=== PATIENT | female | born 1985 | race Caucasian/White ===

== ENCOUNTER 2020-04-08 12:41 | Emergency (ER) | payer OTHER, SELFPAY ==
[2020-04-08 14:16] VITALS: BP 146/86; PULSE 89; RESP 18; TEMP 36.8; O2SAT 99; BMI 23.4
--- NOTE | 2020-04-08 14:22 | ED.DIZZY ---
HPI - Dizziness General Chief Complaint: Dizziness Stated Complaint: dizziness 2 weeks Time Seen by Provider: 04/08/20 14:22 Source: patient Mode of arrival: ambulatory Limitations: no limitations History of Present Illness HPI Narrative: Patient's history of benign positional vertigo came here for dizziness similar to that in the past for last 2 weeks started all of a sudden increases on head movement to the right slight nausea patient feels weak otherwise no stiff anemia also complaining of slight headache and poor sleep increased stress at home MD elicited complaint: dizziness Pertinent past history: BPPV Onset (ago): week(s) (2) Timing: sudden onset Severity: mild Description: sense of movement and room spinning Context: change in body position History of similar symptoms: Yes Exacerbating factors: movement/ambulation and change in body position Associated symptoms: denies other symptoms Related Data Previous Rx's Medication Instructions Recorded meclizine 25 mg PO TID PRN #20 tab 04/08/20 Allergies Allergy/AdvReac Type Severity Reaction Status Date / Time ibuprofen [From MOTRIN] Allergy Unknown UPSET Unverified 12/02/19 15:37 STOMACH/PAIN Review of Systems Review of Systems: Constitutional : No Weight loss, No Fever, No Chills ENT/Mouth : No sore throat, No Rhinorrhea Eyes: No Eye Pain, No Swelling Cardiovascular : No Chest Pain, no palpitations Respiratory : No Cough, No Sputum, no shortness of breath Gastrointestinal : no Nausea, No Vomiting, No Diarrhea, No abdominal Pain, no black stools Genitourinary : No Dysuria, No Urinary Frequency Musculoskeletal : No joint pain, No Myalgias, No Joint Swelling Skin : No Skin Lesions, No rash Neuro : No Weakness, No Numbness, ++ Dizziness, +Headache Psych : No Anxiety/Panic, No Depression Heme/Lymph: No Bruising, No Lymphadenopathy Endocrine : No Polyuria, No Polydipsia All other systems reviewed and are negative [facility] Social History Social History Advance Directives: No Advance Directives Information Provided: No Physical Exam Vital Signs: Vital Signs: Last Vital Signs Temp 98.2 F 04/08/20 14:16 Pulse 89 04/08/20 14:16 Resp 18 04/08/20 14:16 BP 146/86 H 04/08/20 14:16 Pulse Ox 99 04/08/20 14:16 Body Mass Index 23.4 Appearance: Alert. Oriented X3. No acute distress. Eyes: Pupils equal, round and reactive to light. ENT: Pharynx normal. Neck: Normal inspection. Neck supple. CVS: Normal heart rate and rhythm. Pulses normal. Respiratory: No respiratory distress. Breath sounds normal. Abdomen: Soft and nontender. Bowel sounds are present, no mass palpable, no CVA tenderness Skin: Skin warm and dry. Normal skin color. Normal skin turgor. Extremities: No lower extremity edema. Neuro: Oriented X 3. No motor deficit. No sensory deficit. No nystagmus EOMI no cerebellar signs, gait is stable Course Course Course Narrative: Patient with clinically benign positional vertigo with history of same in the past, feels better after meclizine ambulatory in the ER labs are stable with discharge patient home MDM - Dizziness Differential Diagnosis Differential diagnosis: Likely benign paroxysmal positional vertigo Medical Records Attestation: I reviewed the patient's medical records. Lab Data Attestation: I reviewed the patient's lab results. Result diagrams: 04/08/20 14:43 04/08/20 14:43 Labs: Lab Results 04/08/20 04/08/20 04/08/20 Range/Units 14:40 14:43 14:43 WBC 8.4 (4.8-10.8) X10*3/uL RBC 4.85 (4.20-5.50) X10*6/uL Hgb 13.8 (12.0-16.0) g/dl Hct 41.4 (37-47) % MCV 85.4 (80-98) fL MCH 28.5 (27.0-33.0) pg MCHC 33.3 (31.0-35.0) g/dl RDW 11.7 (11.0-16.0) % Plt Count 362 (160-400) X10*3/uL MPV 9.7 (9.4-12.3) fL Immature Gran % (Auto) 0.2 (0.0-0.4) % Neut % (Auto) 68.0 (45-73) % Lymph % (Auto) 24.0 (20-40) % [place] % (Auto) 7.5 (2-11) % Eos % (Auto) 0.2 (0-4) % Baso % (Auto) 0.1 (0-2) % Lymph # (Auto) 2.0 (1.2-4.9) X10*3/uL [place] # (Auto) 0.6 (0.1-1.2) X10*3/uL Eos # (Auto) 0.0 (0.0-0.4) X10*3/uL Baso # (Auto) 0.0 (0.0-0.2) X10*3/uL Abs Immat Gran (auto) 0.02 (0.00-0.03) X10*3/uL Absolute Neuts (auto) 5.7 (2.0-8.3) X10*3/uL Absolute Nucleated RBC 0.000 (0.0-0.012) X10*3/uL Nucleated RBC % (auto) 0.0 (0.0-0.2) /100WBC Sodium 139 (135-145) mmol/L Potassium 4.8 (3.3-5.1) mmol/l Chloride 104 (96-108) mmol/L Carbon Dioxide 26 (22-29) mmol/L Anion Gap 14 (12-20) BUN 9 (9-16) mg/dL Creatinine 0.77 (0.5-1.4) mg/dL Estim Creat Clear Calc 88.8 Estimated GFR > 60 Random Glucose 84 (60-115) mg/dL Calcium 9.7 (8.4-10.2) mg/dL Urine Color YELLOW Urine Appearance CLEAR Urine pH 5.5 (5.0-8.0) Ur Specific [place] 1.015 (1.005-1.025) Urine Protein NEG (NEG-TRACE) MG/DL Urine Glucose (UA) NEG (NEG) MG/DL Urine Ketones NEG (NEG) MG/DL Urine Blood 1+ H (NEG) Urine Nitrite NEG (NEG) Ur Leukocyte Esterase NEG (NEG) Urine RBC 0-2 (0) /HPF Urine WBC 0-2 (0-4) /HPF Ur Squamous Epith Cells TRACE /LPF Urine Bacteria NONE /LPF Discharge Plan Discharge Clinical Impression: Benign paroxysmal positional vertigo Patient Disposition: Home, Self-Care Instructions: Benign Paroxysmal Positional Vertigo (ED) Additional Instructions: Rest take meclizine as prescribed for severe dizziness Follow with PCP Prescriptions: New meclizine 25 mg tablet 25 mg PO TID PRN (Reason: dizziness) Qty: 20 RF: 0 Interventions: ED Discharge Assessment Last Done: 04/08/20 15:36 Discharge Date/Time: 04/08/20 15:36
[2020-04-08] MEDS: Meclizine HCl 25 MG TABLET 50 MG PO (14:42)
[2020-04-08 14:49] LABS: MANUAL DIFF FLAG NO
[2020-04-08 14:50] LABS: Basophils Percent Auto 0.1 % (0-2); Eosinophils Percent Auto 0.2 % (0-4); Hematocrit 41.4 % (37-47); Hemoglobin 13.8 g/dl (12.0-16.0); Imm Gran Abs Auto 0.02 X10*3/uL (0.00-0.03); Imm Gran Pct Auto 0.2 % (0.0-0.4); Mean Corpuscular HGB Conc 33.3 g/dl (31.0-35.0); Mean Corpuscular Hemoglobin 28.5 pg (27.0-33.0); Mean Corpuscular Volume 85.4 fL (80-98); Mean Platelet Volume 9.7 fL (9.4-12.3); Monocytes Absolute Auto 0.6 X10*3/uL (0.1-1.2); Monocytes Percent Auto 7.5 % (2-11); Neutrophils Absolute Auto 5.7 X10*3/uL (2.0-8.3); Platelet Count 362 X10*3/uL (160-400); Red Blood Count 4.85 X10*6/uL (4.20-5.50); Red Cell Distribution Width 11.7 % (11.0-16.0); White Blood Count 8.4 X10*3/uL (4.8-10.8)
[2020-04-08 14:51] LABS: Appearance Urine CLEAR; Color Urine YELLOW; Glucose Urine UA NEG (NEG); Leukocyte Esterase Urine NEG (NEG); Nitrite Urine NEG (NEG); PH 5.5 (5.0-8.0); Specific Gravity - Urine 1.015 (1.005-1.025); Urine Blood 1+ (NEG); Urine Ketones NEG (NEG); Urine Protein NEG (NEG-TRACE)
[2020-04-08 15:00] LABS: RBC Urine 0-2 /HPF (0); Squamous Epithelial Cell Urine TRACE /LPF; WBC Urine 0-2 /HPF (0-4)
[2020-04-08 15:13] LABS: Anion Gap 14 (12-20); Blood Urea Nitrogen 9 mg/dL (9-16); Calcium 9.7 mg/dL (8.4-10.2); Carbon Dioxide 26 mmol/L (22-29); Chloride 104 mmol/L (96-108); Creatinine Clr Calc Pharmacy 88.8; Estimated Glomerular Filt Rate > 60; Glucose Random 84 mg/dL (60-115); Potassium 4.8 mmol/l (3.3-5.1); Sodium 139 mmol/L (135-145)
== END 2020-04-08 15:36 | disposition home or self-care (01) ==
PROVIDERS: Emergency Provider Internal Medicine; PCP Physician Assistant Medical
DX: H81.13 Benign paroxysmal vertigo, bilateral (principal); Z79.899 Other long term (current) drug therapy
CPT/HCPCS: 36415; 80048; 81001; 85025; 99283

== ENCOUNTER 2021-07-07 15:31 | Emergency (ER) | payer OTHER, SELFPAY ==
[2021-07-07 15:44] VITALS: BP 128/77; BP 180/60; PULSE 122; PULSE 128; RESP 18; TEMP 38; O2SAT 96; O2SAT 98; BMI 29.8
--- NOTE | 2021-07-07 15:59 | ED.GENADULT ---
HPI - General Adult General Chief complaint: Upper Respiratory Symptoms Stated complaint: FEVER,NAUSEA,? COVID, NOT VACCINATED Time Seen by Provider: 07/07/21 15:58 Source: patient Mode of arrival: ambulatory Limitations: no limitations History of Present Illness HPI narrative: Patient is a 35 year old female presenting to the emergency department today feeling generally unwell. Patient states that for the last 4 days she has felt unwell and all of her family is COVID-19+. Patient denies any dizziness, lightheadedness, abdominal pain, nausea, vomiting, chills, blurry vision, double vision, loss of vision, chest pain, difficulty breathing, shortness of breath, back pain, night sweats, pain with urination, increased urinary frequency, increased urinary urgency, blood in her urine or stool, syncope or a near syncopal episode, recent trauma or falls, bowel incontinence, bladder incontinence, bowel retention, bladder retention, or any other complaints at this time. Onset (ago): day(s) (4) Relieving factors: none Exacerbating factors: none Associated symptoms: cough Treatments prior to arrival: none Related Data Previous Rx's Medication Instructions Recorded meclizine 25 mg tablet 25 mg PO TID PRN #20 tab 04/08/20 acetaminophen 325 mg capsule 325 mg PO QID PRN #30 cap 07/07/21 (Tylenol) ondansetron 4 mg disintegrating 4 mg PO Q8H 3 Days #9 tab 07/07/21 tablet Allergies Allergy/AdvReac Type Severity Reaction Status Date / Time ibuprofen [From MOTRIN] Allergy Unknown UPSET Unverified 12/02/19 15:37 STOMACH/PAIN Review of Systems Constitutional: Constitutional: Reports no additional constitutional complaints, Reports body ache(s), Denies chills, Reports fever(s) and Denies night sweats Eyes: Eyes: Reports no additional eye complaints, Denies blurry vision, Denies change in vision, Denies diplopia, Denies eye discharge, Denies loss of vision and Denies eye pain ENT: Denies dizziness Cardiovascular: Cardiovascular: Reports no additional cardiovascular complaints, Denies chest pain, Denies lightheadedness, Denies Loss of Consciousness and Denies dyspnea Respiratory: Respiratory: Reports no additional respiratory complaints, Reports cough and Denies dyspnea Gastrointestinal: Gastrointestinal: Reports no additional gastrointestinal complaints, Denies abdominal pain, Denies melena, Denies hematochezia, Denies change in bowel habits and Denies change in stool character Genitourinary: Genitourinary: Denies hematuria, Denies urinary frequency, Denies dysuria, Denies urinary incontinence, Denies urinary hesitancy and Denies urinary urgency Musculoskeletal: Musculoskeletal: Reports no additional musculoskeletal complaints, Denies numbness and Denies tingling Neurologic: Denies dizziness, Denies loss of vision, Denies numbness and Denies tingling Psychiatric: Psychiatric: Reports no additional psychiatric complaints Endocrine: Endocrine: Reports no additional endocrine complaints Hematologic/Lymphatic: Hematologic/Lymphatic: Reports no additional hematologic/lymphatic complaints Allergic/Immunologic: Allergic/Immunologic: Reports no additional allergic/immunologic complaints [facility] Past Medical History Attestation statement: The following information was validated with the patient. Source: old records reviewed Social History Social History Advance Directives: No Advance Directives Information Provided: No Physical Exam ED Vital Signs: Vital Signs - 24 hr 07/07/21 15:44 07/07/21 16:02 07/07/21 18:49 Temperature 100.4 F 98.5 F Pulse Rate 122 H 98 Respiratory Rate 18 16 Blood Pressure 128/77 100/54 L Pulse Oximetry 96 100 99 BMI result Body Mass Index 29.8 Const General: cooperative, no acute distress, alert and awake Nutritional Appearance: well nourished Orientation/consciousness: patient oriented x3 Limitations: no limitations HENMT Head: Yes normal to inspection and Yes atraumatic Ears: hearing grossly normal bilaterally and external ears normal General nose exam: Normal external nose present, no nasal discharge noted and no epistaxis Face and sinus: Yes normal facial exam, No abrasion and No laceration Mouth: Normal oral and palatal mucosa present, no drooling and no muffled voice Eyes General: appearance normal, both eyes and all related structures Periorbital: periorbital findings normal Eyelids: Yes eyelids normal Conjunctivae: conjunctivae normal Pupils: Equal, round and reactive pupils present EOM: EOMs intact bilaterally Neck Neck: Yes normal visual inspection, Yes full ROM and Yes no lymphadenopathy Chest Chest palpation & inspection: normal inspection of the chest Resp Effort & Inspection: normal respiratory effort and able to speak in complete sentences Auscultation: clear to auscultation bilaterally GI Inspection: Yes normal to inspection Neuro General: patient oriented x3 and moves all extremities Cranial nerves: Yes Equal, round and reactive pupils present Cognition (Neuro): normal cognition Motor exam (neuro): 5/5 motor strength present throughout Sensory Exam: Normal double simultaneous stimulation for sensation Coordination: [id number] test normal Extrem General: Yes normal to inspection, Yes full ROM and Yes capillary refill normal Psych Appearance: grossly normal Mental Status: mental status grossly normal Affect: normal affect Attitude: cooperative Thought process: Normal thought process present Thought content: Normal thought content present Insight: Good insight present (Psych) Medical Decision Making MDM Narrative Medical decision making narrative: Patient is a 35 year old female presenting to the emergency department today feeling generally unwell. Patient's physical exam was unremarkable. Patient's rapid COVID-19 test was positive. I explained my physical exam findings as well as all test results to the patient. I answered all questions asked by the patient. I stressed the importance of the patient taking her medication as prescribed. I stressed the importance of the patient following up with her primary care provider. I stressed the importance of the patient returning to the emergency department immediately if her symptoms were to worsen or if she were to develop any dizziness, shortness of breath, difficulty breathing, chest pain, blurry vision, loss of vision, nausea, vomiting, abdominal pain, fever, chills, back pain, or any other complaints. Patient verbalized agreement and understanding with this treatment plan and discharge. Differential Diagnosis Differential Diagnosis: influenza, COVID-19 Medical Records Medical records reviewed: Yes I reviewed the patient's medical records. Lab Data Lab results reviewed: Yes I reviewed the patient's lab results. Labs: Lab Results 07/07/21 07/07/21 Range/Units 15:49 16:25 COVID-19 (REUBEN) Positive A (Negative) COVID-19 Clin Com See Note Influenza Type A (ANA MARIA) Negative (Negative) Influenza Type B (ANA MARIA) Negative (Negative) Influenza A & B Note See Note Discharge Plan Discharge Clinical Impression: COVID Patient Disposition: Home, Self-Care Instructions: COVID-19 (Coronavirus Disease 2019) (ED) Additional Instructions: Follow up with your primary care provider. Return to the emergency department immediately if your symptoms worsen or if you develop any dizziness, shortness of breath, difficulty breathing, chest pain, blurry vision, loss of vision, nausea, vomiting, abdominal pain, fever, chills, back pain, or any other complaints. Prescriptions: New ondansetron 4 mg tablet,disintegrating 4 mg PO Q8H 3 Days Qty: 9 0RF acetaminophen [Tylenol] 325 mg capsule 325 mg PO QID PRN (Reason: fever or pain) Qty: 30 0RF No Action meclizine 25 mg tablet 25 mg PO TID PRN (Reason: dizziness) Qty: 20 0RF Referrals: [facility] [place] Family Medicine [Provider Group] [facility] Primary Care, Yasmine [Provider Group] [facility] [place] Primary Care,Apolinar [Provider Group] Physician,Unknown J [Primary Care Provider] - (Follow up with your PCP. ) Stand Alone Forms: Work/School Release Interventions: ED Discharge Assessment Last Done: 07/07/21 19:55 Discharge Date/Time: 07/07/21 19:30 Print Language: [place]
[2021-07-07 16:02] VITALS: O2SAT 100
[2021-07-07 16:06] LABS: COVID-19 Test Positive (Negative)
[2021-07-07] MEDS: Acetaminophen 325 MG TABLET 650 MG PO (16:22)
[2021-07-07] MEDS: Ondansetron ODT 4 MG TAB.RAPDIS TRANSLINGU (16:22)
[2021-07-07 16:49] LABS: Influenza A Negative (Negative); Influenza B2 Negative (Negative)
[2021-07-07] MEDS: 0.9 % Sodium Chloride 1,000 ML 999 ML IVCONT (18:14)
[2021-07-07 18:49] VITALS: BP 100/54; PULSE 98; RESP 16; TEMP 36.9; O2SAT 99
== END 2021-07-07 19:30 | disposition home or self-care (01) ==
PROVIDERS: Physician Assistant Medical; Emergency Provider Emergency Medicine Emergency Medical Services
DX: U07.1 COVID-19 (principal); R50.9 Fever, unspecified; R11.0 Nausea; R05.9 Cough, unspecified; Z79.899 Other long term (current) drug therapy
CPT/HCPCS: 87502; 87635; 96360; 99284; 99285

== ENCOUNTER 2023-06-26 20:21 | Emergency (ER) | payer OTHER, SELFPAY ==
--- NOTE | ~2023-06-26 | XR_ITS ---
EXAMINATION: XR CHEST CLINICAL INFORMATION: Cough. COMPARISON: None available. TECHNIQUE: 2 views of the chest were obtained. FINDINGS: Normal appearance of the cardiomediastinal silhouette. No focal airspace opacities, pleural effusion or pneumothorax. No acute osseous findings. Visualized upper abdomen is within normal limits. XR/XR chest 2V IMPRESSION: No acute cardiopulmonary findings.
[2023-06-26 20:30] VITALS: BP 136/88; PULSE 88; RESP 18; TEMP 36.4; O2SAT 99; BMI 33.1
--- NOTE | 2023-06-26 20:31 | ED.URI ---
HPI - URI/Sore Throat General Chief Complaint: Upper Respiratory Symptoms Stated Complaint: cough x 1 week Time Seen by Provider: 06/26/23 21:18 Source: patient Mode of arrival: ambulatory Limitations: no limitations History of Present Illness HPI Narrative: Patient has been coughing for last 1 week with wheezing urine is inspiration denies any history of asthma also obtain of sore throat no fever no chills Related Data Previous Rx's ?Medication ?Instructions ?Recorded meclizine 25 mg tablet 25 mg PO TID PRN dizziness #20 tabs 04/08/20 acetaminophen 325 mg capsule 325 mg PO QID PRN fever or pain 07/07/21 (Tylenol) #30 caps ondansetron 4 mg disintegrating 4 mg PO Q8H 3 days #9 tabs 07/07/21 tablet benzonatate 200 mg capsule 200 mg PO TID PRN cough #30 caps 06/26/23 cefuroxime axetil 500 mg tablet 500 mg PO BID 7 days #14 tabs 06/26/23 prednisone 20 mg tablet 40 mg (2 x 20 mg) PO DAILY #10 tabs 06/26/23 Allergies Allergy/AdvReac Type Severity Reaction Status Date / Time griseofulvin AdvReac Headache Verified 06/26/23 21:56 Review of Systems Review of Systems: Yes all other systems are reviewed and are negative PMFSH Social History Social History Advance Directives: No Advance Directives Information Provided: No Physical Exam Vital Signs: Vital Signs: Last Vital Signs Temp 98.1 F 06/26/23 21:58 Pulse 78 06/26/23 21:58 Resp 18 06/26/23 21:58 BP 128/78 06/26/23 21:58 Pulse Ox 99 06/26/23 21:58 O2 Del Method Room Air 06/26/23 21:58 BMI result Body Mass Index 33.1 Appearance: Alert. Oriented X3. No acute distress. ENT: Pharynx normal. Oral Mucosa moist Neck: Normal inspection. Neck supple. CVS: Normal heart rate and rhythm. Pulses normal. Respiratory: No respiratory distress. Equal air entry bilateral, prolonged expiration with frequent cough Abdomen: Soft and nontender. Bowel sounds are present, Skin: Skin warm and dry. Normal skin color. Normal skin turgor. Extremities: No lower extremity edema. No calf tenderness Neuro: Oriented X 3. Course Course Course Narrative: This is a Rapid Medical Examination (RME) in triage, full HPI, ROS, assessment and plan per primary provider in the Main ED. 37 yo female presenting to the ER for evaluation of 1 week of cough, sore throat, chest tightness, wheezing w/ deep breaths. No hx asthma. Plan: CXR, viral and strep swabs Medications Administered Discontinued Medications Generic Name Dose Route Start Last Admin Trade Name Freq PRN Reason Stop Dose Admin Cefuroxime Axetil 500 mg 06/26/23 21:39 06/26/23 21:55 Cefuroxime Axetil 500 Mg Tablet PO 06/26/23 21:40 500 mg ONCE ONE Administration Guaifenesin/Codeine Phosphate 10 ml 06/26/23 21:39 06/26/23 21:56 Guaifen/Codeine Sf 200/20/10ml 10 Ml Liquid PO 06/26/23 21:40 10 ml ONCE ONE Administration Prednisone 40 mg 06/26/23 21:39 06/26/23 21:54 Prednisone 20 Mg Tablet PO 06/26/23 21:40 40 mg ONCE ONE Administration Medical Decision Making Medical Decision Making MDM Narrative: Patient with acute bronchitis chest x-ray negative for infiltrate COVID flu negative discharge patient Ceftin and cough drops along with prednisone Differential Diagnosis Differential Diagnoses: The differential diagnosis associated with the presentation includes Bronchitis/asthma/pneumonia/viral syndrome Lab Data [facility] Lab Attestation statement: I reviewed the patient's lab results. Labs: Lab Results 06/26/23 Range/Units 20:48 COVID-19 (REUBEN) Negative (Negative) COVID-19 Clin Com See Note Influenza Type A (ANA MARIA) Negative (Negative) Influenza Type B (ANA MARIA) Negative (Negative) Influenza A & B Note See Note S. pyogenes GrpA ANA MARIA Negative (Negative) Independent Interpretation I performed an independent interpretation of an: Plain X-Ray Radiology Impression Discussion of test interpretation with radiology: I have reviewed the radiologist's reading. Discharge Plan Discharge Clinical Impression: Bronchitis Patient Disposition: Home, Self-Care Instructions: Acute Bronchitis (ED) Additional Instructions: Antibiotic prednisone and cough drops as prescribed Continue to use your inhaler 2 puffs every 4-6 hours as needed for wheezing Prescriptions: New benzonatate 200 mg capsule 200 mg PO TID PRN (Reason: cough) Qty: 30 0RF prednisone 20 mg tablet 40 mg PO DAILY Qty: 10 0RF cefuroxime axetil 500 mg tablet 500 mg PO BID 7 Days Qty: 14 0RF No Action meclizine 25 mg tablet 25 mg PO TID PRN (Reason: dizziness) Qty: 20 0RF ondansetron 4 mg tablet,disintegrating 4 mg PO Q8H 3 Days Qty: 9 0RF acetaminophen [Tylenol] 325 mg capsule 325 mg PO QID PRN (Reason: fever or pain) Qty: 30 0RF Interventions: ED Discharge Assessment Last Done: 06/26/23 21:58 Discharge Date/Time: 06/26/23 21:59 Print Language: Macedonian
--- NOTE | 2023-06-26 20:51 | MHC.EDTECH ---
Patient brought into triage area,covid,flu,and strep swabs obtained and sent to lab.
[2023-06-26 21:02] LABS: IDNOW Serial# 08D9AD1C; Strep A Nucleic Acid Negative (Negative)
[2023-06-26 21:06] LABS: COVID-19 Test Negative (Negative); IDNOW Serial# 58CA691E
[2023-06-26 21:10] LABS: IDNOW Serial# 152EDE1D; Influenza A Negative (Negative); Influenza B2 Negative (Negative)
[2023-06-26 21:13] VITALS: BP 128/70; PULSE 78; RESP 18; TEMP 36.7; O2SAT 99
[2023-06-26] MEDS: predniSONE 20 MG TABLET 40 MG PO (21:54)
[2023-06-26] MEDS: cefuroxime axetiL 500 MG TABLET PO (21:55)
[2023-06-26] MEDS: guaiFEN/Codeine SF 200/20/10ML 10 ML LIQUID PO (21:56)
[2023-06-26 21:58] VITALS: BP 128/78; PULSE 78; RESP 18; TEMP 36.7; O2SAT 99
== END 2023-06-26 21:59 | disposition home or self-care (01) ==
PROVIDERS: Physician Assistant; Emergency Provider Internal Medicine; PCP Physician Assistant
DX: J40 Bronchitis, not specified as acute or chronic (principal); R05.9 Cough, unspecified; Z11.52 Encounter for screening for COVID-19
CPT/HCPCS: 71046; 87502; 87635; 87651; 99282; 99283

== ENCOUNTER 2023-09-23 15:04 | Emergency (ER) | payer OTHER, SELFPAY ==
--- NOTE | 2023-09-23 15:07 | ECG_ITS ---
Test Reason : CHEST PAIN Blood Pressure : / mmHG Vent. Rate : 074 BPM Atrial Rate : 074 BPM P-R Int : 122 ms QRS Dur : 088 ms QT Int : 388 ms P-R-T Axes : 049 024 037 degrees QTc Int : 430 ms Normal sinus rhythm Normal ECG When compared with ECG of 13-JAN-2019 08:19, No significant change was found Referred By: Josh Leslie Electronically Signed By:Tristin Kiran
[2023-09-23 16:19] VITALS: BP 132/74; PULSE 88; RESP 18; TEMP 36.7; O2SAT 99; BMI 35.1
--- NOTE | 2023-09-23 17:52 | PC.NURSE ---
pt declined covid/flu/rsv. tested neg at PCP earlier today.
[2023-09-23 17:53] LABS: MANUAL DIFF FLAG NO
[2023-09-23 17:57] LABS: Basophils Percent Auto 0.2 % (0-2); Eosinophils Absolute Auto 0.1 X10*3/uL (0.0-0.4); Eosinophils Percent Auto 0.9 % (0-4); Hematocrit 39.7 % (37.0-47.0); Hemoglobin 13.6 g/dl (12.0-16.0); Imm Gran Abs Auto 0.04 X10*3/uL (0.00-0.03); Imm Gran Pct Auto 0.5 % (0.0-0.4); Lymphocytes Absolute Auto 2.3 X10*3/uL (1.2-4.9); Lymphocytes Percent Auto 26.2 % (20-40); Mean Corpuscular HGB Conc 34.3 g/dl (31.0-35.0); Mean Corpuscular Volume 87.6 fL (80.0-98.0); Mean Platelet Volume 9.4 fL (9.4-12.3); Monocytes Absolute Auto 0.8 X10*3/uL (0.1-1.2); Monocytes Percent Auto 8.9 % (2-11); Neutrophils Absolute Auto 5.6 x10*3/uL (2.0-8.3); Neutrophils Percent Auto 63.3 % (45-73); Platelet Count 349 X10*3/uL (160-400); Red Blood Count 4.53 X10*6/uL (4.20-5.50); Red Cell Distribution Width 12.1 % (11.0-16.0); White Blood Count 8.8 X10*3/uL (4.8-10.8)
[2023-09-23 18:02] LABS: INTERNATIONAL NORM RATIO 0.9 (0.9-1.1)
[2023-09-23 18:08] LABS: Alanine Aminotransferase 36 U/L (0-31); Albumin Level 4.5 g/dL (3.5-5.0); Alkaline Phosphatase 67 U/L (39-117); Anion Gap 14 (12-20); Aspartate Amino Transferase 22 U/L (5-31); Bilirubin Total 0.3 mg/dL (0.0-1.0); Blood Urea Nitrogen 16 mg/dL (9-16); Calcium 9.5 mg/dL (8.4-10.2); Carbon Dioxide 24 mmol/L (22-29); Chloride 107 mmol/L (96-108); Creatinine Clr Calc Pharmacy 105.4; Estimated Glomerular Filt Rate > 60; Glucose Random 107 mg/dL (60-115); Potassium 4.2 mmol/L (3.3-5.1); Sodium 141 mmol/L (135-145); Total Protein 7.4 g/dL (6.5-8.0)
[2023-09-23 18:16] LABS: Troponin-I High Sensitivity < 2.7 ng/L (<3.5-17.0)
--- NOTE | 2023-09-23 19:16 | ED_ITS ---
HPI - General Adult General Chief complaint: Weakness Stated complaint: chest pain/weakness/palpitations for the past week Time Seen by Provider: 09/23/23 18:47 Source: patient Mode of arrival: ambulatory Limitations: no limitations History of Present Illness HPI narrative: Patient is a 38-year-old female who presents to the emergency department for multiple complaints. She expresses experiencing generalized weakness, fatigue, myalgias, diffuse body paresthesias with pins and needles sensation. Symptoms have been ongoing for many months but states that they have been worse over the past week. She admits to an episode of chest pain last night felt diffusely across the anterior chest lasting a few minutes before self-resolving. She recently flew from [place] 10 days ago an approximate 2 hour flight. She was evaluated at an urgent care prior to arrival, she was tested for COVID-19 and influenza which were negative and states that she had a normal EKG but was advised to come to the emergency department for further testing. She states that she is seen her primary care doctor multiple times in the past for similar symptoms and has been told that it is secondary to her anxiety and depression. She does not feel that this is the case, citing ?I am the happiest I have been in my life? I do not feel anxious or depressed and I am still having these symptoms. Related Data Previous Rx's ?Medication ?Instructions ?Recorded meclizine 25 mg tablet 25 mg PO TID PRN dizziness #20 tabs 04/08/20 acetaminophen 325 mg capsule 325 mg PO QID PRN fever or pain 07/07/21 (Tylenol) #30 caps ondansetron 4 mg disintegrating 4 mg PO Q8H 3 days #9 tabs 07/07/21 tablet benzonatate 200 mg capsule 200 mg PO TID PRN cough #30 caps 06/26/23 cefuroxime axetil 500 mg tablet 500 mg PO BID 7 days #14 tabs 06/26/23 prednisone 20 mg tablet 40 mg (2 x 20 mg) PO DAILY #10 tabs 06/26/23 Allergies Allergy/AdvReac Type Severity Reaction Status Date / Time griseofulvin AdvReac Headache Verified 09/23/23 16:24 Review of Systems 2 Review of Systems: Yes all other systems are reviewed and are negative PMFSH Past Medical History Attestation statement: The following information was validated with the patient. Source: old records reviewed Social History Social History Unable to assess alcohol history related to: Unable to respond Smoked in Last 30 Days: No Use of substances other than those prescribed or required for medical reasons: No Advance Directives: No Advance Directives Information Provided: No Do you have a plan to hurt others: No Plan Physical Exam ED Vital Signs: Vital Signs - 24 hr 09/23/23 16:19 09/23/23 19:35 Temperature 98.0 F 97.9 F Pulse Rate 88 71 Respiratory Rate 18 20 Blood Pressure 132/74 131/69 Pulse Oximetry 99 100 Oxygen Delivery Method Room Air Room Air BMI result Body Mass Index 35.1 Appearance: Alert.?Oriented to person, place and time. No acute distress.?Normal affect. Eyes: Pupils equal, round and reactive to light.? ENT: Pharynx normal.?? Neck: Normal inspection.? Neck supple.?? CVS: Heart sounds normal. Normal heart rate and rhythm.? Pulses normal.?? Respiratory: No respiratory distress.? Lung sounds clear to auscultation bilaterally?? Abdomen: Soft and non-tender. Normoactive bowel sounds. No pulsatile mass.?? Skin: Skin warm and dry.? Normal skin color.? ? Extremities: No lower extremity edema.? No calf ttp? Neuro: Moves all extremities spontaneously. Sensation intact bilaterally. CN II- XII intact. No focal neuro deficits. Ambulates with normal steady gait. Medical Decision Making Medical Decision Making MDM Narrative: Patient is a 38-year-old female who presents emergency department for evaluation of multiple complaints as per HPI. Overall she appears well, nontoxic, afebrile. Her vital signs are stable. She has ambulatory with a steady gait. She has no focal neurological deficits on examination. On review of serum labs CBC is without leukocytosis anemia or thrombocytopenia. No electrolyte derangement. No LEONARDO. LFTs within normal range. High sensitive troponin below detectable limits, EKG revealing a normal sinus rhythm with ventricular rate of 74, QTC 430, no ST elevation, no ST depression, no acute ischemic findings not consistent with ACS. Perc negative unlikely pulmonary embolism. TSH within normal range. Reviewed all findings with patient, her physical examination is benign. We discussed outpatient follow-up with her primary care doctor for ongoing symptoms, discussed worrisome signs and symptoms that would warrant re- evaluation in the emergency department. All questions answered. Stable for discharge Differential Diagnosis Differential Diagnoses: The differential diagnosis associated with the presentation includes (See narrative above) Admission/Observation Consideration of admission/observation: Escalation of care including admission/observation considered Lab Data MDM Lab Attestation statement: I reviewed the patient's lab results. (See narrative above) 09/23/23 17:45 09/23/23 17:45 Labs: Lab Results 09/23/23 Range/Units 17:45 WBC 8.8 (4.8-10.8) X10*3/uL RBC 4.53 (4.20-5.50) X10*6/uL Hgb 13.6 (12.0-16.0) g/dl Hct 39.7 (37.0-47.0) % MCV 87.6 (80.0-98.0) fL MCH 30.0 (27.0-33.0) pg MCHC 34.3 (31.0-35.0) g/dl RDW 12.1 (11.0-16.0) % Plt Count 349 (160-400) X10*3/uL MPV 9.4 (9.4-12.3) fL Immature Gran % (Auto) 0.5 H (0.0-0.4) % Neut % (Auto) 63.3 (45-73) % Lymph % (Auto) 26.2 (20-40) % [place] % (Auto) 8.9 (2-11) % Eos % (Auto) 0.9 (0-4) % Baso % (Auto) 0.2 (0-2) % Lymph # (Auto) 2.3 (1.2-4.9) X10*3/uL [place] # (Auto) 0.8 (0.1-1.2) X10*3/uL Eos # (Auto) 0.1 (0.0-0.4) X10*3/uL Baso # (Auto) 0.0 (0.0-0.2) X10*3/uL Abs Immat Gran (auto) 0.04 H (0.00-0.03) X10*3/uL Absolute Neuts (auto) 5.6 (2.0-8.3) x10*3/uL Absolute Nucleated RBC 0.000 (0.0-0.012) X10*3/uL Nucleated RBC % (auto) 0.0 (0.0-0.2) /100WBC PT 11.0 L (11.1-13.3) SEC INR 0.9 (0.9-1.1) Sodium 141 (135-145) mmol/L Potassium 4.2 (3.3-5.1) mmol/L Chloride 107 (96-108) mmol/L Carbon Dioxide 24 (22-29) mmol/L Anion Gap 14 (12-20) BUN 16 (9-16) mg/dL Creatinine 0.77 (0.5-1.4) mg/dL Estim Creat Clear Calc 105.4 Estimated GFR > 60 Random Glucose 107 (60-115) mg/dL Calcium 9.5 (8.4-10.2) mg/dL Total Bilirubin 0.3 (0.0-1.0) mg/dL AST 22 (5-31) U/L ALT 36 H (0-31) U/L Alkaline Phosphatase 67 (39-117) U/L Troponin I High Sens < 2.7 (<3.5-17.0) ng/L Total Protein 7.4 (6.5-8.0) g/dL Albumin 4.5 (3.5-5.0) g/dL TSH 1.74 (0.32-4.0) uIU/mL Tests considered The following testing was considered but not selected: PERC negative, unlikely pulmonary embolism, CT angio of the chest deferred. Discharge Plan Discharge Clinical Impression: Arthralgia, Fatigue Patient Disposition: Home, Self-Care Instructions: Arthralgia (ED) Additional Instructions: Please follow-up closely with your primary care doctor regarding your ongoing symptoms. Return back to emergency department any new or worsening symptoms or concerns Prescriptions: No Action meclizine 25 mg tablet 25 mg PO TID PRN (Reason: dizziness) Qty: 20 0RF ondansetron 4 mg tablet,disintegrating 4 mg PO Q8H 3 Days Qty: 9 0RF acetaminophen [Tylenol] 325 mg capsule 325 mg PO QID PRN (Reason: fever or pain) Qty: 30 0RF benzonatate 200 mg capsule 200 mg PO TID PRN (Reason: cough) Qty: 30 0RF prednisone 20 mg tablet 40 mg PO DAILY Qty: 10 0RF cefuroxime axetil 500 mg tablet 500 mg PO BID 7 Days Qty: 14 0RF Referrals: Maria Del Rosario Serrato PA [Primary Care Provider] - Print Language: Ukrainian
[2023-09-23 19:35] VITALS: BP 131/69; PULSE 71; RESP 20; TEMP 36.6; O2SAT 100
[2023-09-23 19:40] LABS: TSH reflex Free T4 1.74 uIU/mL (0.32-4.0)
[2023-09-23 20:45] LABS: Influenza A PCR NEGATIVE (Negative); Influenza B PCR NEGATIVE (Negative); Resp Syncy Virus RNA Qual PCR NEGATIVE (Negative); SARS COV2 PCR INHOUSE NEGATIVE (Negative)
[2023-09-23 21:21] VITALS: BP 131/69; PULSE 71; RESP 20; TEMP 36.6; O2SAT 100
== END 2023-09-23 21:57 | disposition home or self-care (01) ==
PROVIDERS: Nurse Practitioner Family; Emergency Provider Emergency Medicine; PCP Physician Assistant
DX: M25.50 Pain in unspecified joint (principal); R53.83 Other fatigue; R53.1 Weakness; R20.2 Paresthesia of skin; R07.9 Chest pain, unspecified; Z03.818 Encounter for observation for suspected exposure to other biological agents ruled out
CPT/HCPCS: 0241U; 36415; 80053; 84443; 84484; 85025; 85610; 93005; 99283; 99284

== ENCOUNTER → 2023-09-23 15:07 | Outpatient (BNV) | payer OTHER, SELFPAY | PROVIDERS: Emergency Provider Emergency Medicine; PCP Physician Assistant; Visit Provider Internal Medicine Cardiovascular Disease | DX: R07.9 Chest pain, unspecified (principal) | CPT/HCPCS: 93010 ==

== ENCOUNTER 2024-05-02 10:01 | Emergency (ER) | payer OTHER, SELFPAY ==
--- NOTE | ~2024-05-02 | XR_ITS ---
CLINICAL HISTORY: CP 2 view chest x-ray. Comparison: CR/IL/SR - XR CHEST 2V - 06/26/23 20:40 EDT Findings: The lungs are adequately expanded. No focal consolidation. No effusion or pneumothorax. Cardiac and mediastinal contours are within normal limits. No acute osseous abnormality Impression: No acute process. This document has been electronically signed by: El Asencio MD on 05/02/2024 10:46:16
--- NOTE | 2024-05-02 10:17 | ED_ITS ---
HPI - Physical Assault General Stated complaint: WEAK NAUSEA Time Seen by Provider: 05/02/24 10:13 Related Data Previous Rx's ?Medication ?Instructions ?Recorded meclizine 25 mg tablet 25 mg PO TID PRN dizziness #20 tabs 04/08/20 acetaminophen 325 mg capsule 325 mg PO QID PRN fever or pain 07/07/21 (Tylenol) #30 caps ondansetron 4 mg disintegrating 4 mg PO Q8H 3 days #9 tabs 07/07/21 tablet benzonatate 200 mg capsule 200 mg PO TID PRN cough #30 caps 06/26/23 cefuroxime axetil 500 mg tablet 500 mg PO BID 7 days #14 tabs 06/26/23 prednisone 20 mg tablet 40 mg (2 x 20 mg) PO DAILY #10 tabs 06/26/23 Allergies Allergy/AdvReac Type Severity Reaction Status Date / Time griseofulvin AdvReac Headache Verified 05/02/24 10:17 [facility] Social History Social History Unable to assess alcohol history related to: Unable to respond Discharge Plan Discharge Prescriptions: No Action meclizine 25 mg tablet 25 mg PO TID PRN (Reason: dizziness) Qty: 20 0RF ondansetron 4 mg tablet,disintegrating 4 mg PO Q8H 3 Days Qty: 9 0RF acetaminophen [Tylenol] 325 mg capsule 325 mg PO QID PRN (Reason: fever or pain) Qty: 30 0RF benzonatate 200 mg capsule 200 mg PO TID PRN (Reason: cough) Qty: 30 0RF prednisone 20 mg tablet 40 mg PO DAILY Qty: 10 0RF cefuroxime axetil 500 mg tablet 500 mg PO BID 7 Days Qty: 14 0RF Print Language: [place]
--- NOTE | 2024-05-02 10:18 | ED_ITS ---
HPI - General Adult General Chief complaint: Weakness Stated complaint: WEAK NAUSEA Time Seen by Provider: 05/02/24 10:13 Source: patient and RN notes reviewed Mode of arrival: ambulatory Limitations: no limitations History of Present Illness ED Provider: Smiley Tolentino PA-C HPI narrative: This is a 38-year-old female, with a history of anxiety, who presents emergency department with complaints of generalized body weakness, body aches, nausea, decreased appetite since last night. Patient states that her last injection of weight loss medication was Friday. She states that she has been attempting to eat however just dries heaves it back up as she was feeling too nauseous. She states that she was able to keep liquids down. She states that this morning she felt her heart racing, and had some chest tightness, she states that she took hydroxyzine and Zofran this morning which provided her with some relief as she thought this was a panic attack. She last moved her bowels yesterday, states that this was slightly loose. She does report urinary hesitacy. No dysuria, urinary frequency. No hematuria. No sick contacts. She admits that she has not been eating well, states that she had been diagnosed with influenza a week and a half ago. Has not had any recent food exposure. MD complaint: Generalized weakness, body aches, nausea Relieving factors: none Exacerbating factors: none Associated symptoms: denies other symptoms Treatments prior to arrival: none Related Data Previous Rx's ?Medication ?Instructions ?Recorded meclizine 25 mg tablet 25 mg PO TID PRN dizziness #20 tabs 04/08/20 acetaminophen 325 mg capsule 325 mg PO QID PRN fever or pain 07/07/21 (Tylenol) #30 caps ondansetron 4 mg disintegrating 4 mg PO Q8H 3 days #9 tabs 07/07/21 tablet benzonatate 200 mg capsule 200 mg PO TID PRN cough #30 caps 06/26/23 cefuroxime axetil 500 mg tablet 500 mg PO BID 7 days #14 tabs 06/26/23 prednisone 20 mg tablet 40 mg (2 x 20 mg) PO DAILY #10 tabs 06/26/23 ondansetron 4 mg disintegrating 4 mg PO Q6H PRN nausea and 05/02/24 tablet vomiting #12 tabs Allergies Allergy/AdvReac Type Severity Reaction Status Date / Time azithromycin AdvReac Unknown Verified 05/02/24 10:21 carisoprodol AdvReac Rash Verified 05/02/24 10:21 dexamethasone AdvReac Hives Verified 05/02/24 10:21 griseofulvin AdvReac Headache Verified 05/02/24 10:21 prochlorperazine AdvReac Involuntary Verified 05/02/24 10:21 Spasms Review of Systems 2 Review of Systems: Yes all other systems are reviewed and are negative Constitutional: Constitutional: Reports as per [facility] Social History Social History Unable to assess alcohol history related to: Unable to respond Advance Directives: No Advance Directives Information Provided: Yes Physical Exam ED Vital Signs: Vital Signs - 24 hr 05/02/24 10:19 05/02/24 15:26 05/02/24 17:10 Temperature 99.2 F 98.0 F 99.0 F Pulse Rate 88 82 Respiratory Rate 18 18 Blood Pressure 136/77 130/74 Pulse Oximetry 98 96 Oxygen Delivery Method Room Air Room Air 05/02/24 17:45 Temperature 99.0 F Pulse Rate 82 Respiratory Rate 18 Blood Pressure 130/74 Pulse Oximetry 96 Oxygen Delivery Method Room Air BMI result Body Mass Index 28.5 Const General: cooperative, comfortable and no acute distress Orientation/consciousness: patient oriented x3 Limitations: no limitations HENMT Head: Yes normal to inspection, Yes normocephalic and Yes atraumatic Ears: hearing grossly normal bilaterally General nose exam: Normal external nose present Face and sinus: Yes normal facial exam Mouth: Normal oral and palatal mucosa present, oropharynx normal and moist mucous membranes Throat: Yes posterior oropharynx normal Eyes General: appearance normal, both eyes and all related structures Eyelids: Yes eyelids normal Conjunctivae: conjunctivae normal Sclerae: sclerae normal Pupils: Equal, round and reactive pupils present EOM: EOMs intact bilaterally Neck Neck: Yes normal visual inspection, Yes full ROM and Yes no lymphadenopathy Lymphatic: no lymphadenopathy noted Chest Chest palpation & inspection: normal inspection of the chest Resp Effort & Inspection: normal respiratory effort and able to speak in complete sentences Auscultation: clear to auscultation bilaterally, no crackles, no rales, no rhonchi and no wheezes Cardio Rate: regular rate Rhythm: regular rhythm Heart sounds: S1 normal heart sound present and S2 normal heart sound present GI Other: Abdomen is soft, nontender, nondistended, no rebound or guarding. Inspection: Yes normal to inspection Skin General skin exam: no rashes or lesions noted Trauma: no lacerations or abrasions Wounds: no wounds Neuro General: patient oriented x3 and moves all extremities Cranial nerves: Yes Equal, round and reactive pupils present Extrem General: Yes normal to inspection Right upper extremity: normal to inspection Left upper extremity: normal to inspection Right lower extremity: normal to inspection Left lower extremity: normal to inspection Course Reevaluation(s) Reevaluation #1: Patient tested positive for influenza A. She did test positive for influenza a about 9-10 days ago at an urgent care facility. She is being medicated with IV fluids. Will medicate also with Tylenol IV. She admits that she has not been eating much food, which could be the source of her decreased energy and generalized weakness. She is alert and oriented, neurologically intact. We will continue to monitor. Overall her workup today is reassuring, she has no leukocytosis, stable H&H, chemistry with no significant electrolyte derangement, TSH within normal limits. She is not . Urine with small leuk esterases, squamous cells. I discussed with patient that this could be the start of a urinary tract infection however patient reports that she does not have any urinary symptoms. Chest x-ray unremarkable for any pneumonia. EKG normal sinus rhythm with no ST elevation or depression. Given episode of chest pain this morning, will repeat troponin. We will continue to closely monitor Time: 12:52 Reevaluation #2: Patient had an episode of vomiting, was medicated with Zofran. Discussed with patient that she has not been eating over the last several days which is likely the source of her generalized weakness. She also tested positive for the flu so this could be the tail end of her virus. Her overall workup today was reassuring, she has no leukocytosis, stable H&H, chemistry within normal limits, no significant electrolyte derangement, troponin x2 negative, negative beta quant. We will repeat vitals. She was able to drink fluids, and eat several crackers. I discussed with patient that we can not eliminate all of her symptoms in his may take several days for her to start to feel better. Time: 16:13 Reevaluation #3: Patient able to eat and drink, feeling improved since her arrival. Discussed with patient to eat small meals throughout the day, as her symptoms are likely attributed to not eating over the last several days, recovering from influenza, as well as possible side effect from her medication. She understands and agrees with plan. Given strict return precautions. Patient stable for discharge Time: 18:06 Medications Administered Discontinued Medications Generic Name Dose Route Start Last Admin Trade Name Mally PRN Reason Stop Dose Admin Acetaminophen 1,000 mg in 100 mls @ 400 mls/hr 05/02/24 12:35 05/02/24 13:21 Ofirmev IV 05/02/24 12:49 Infused ONCE ONE Infusion Lactated Ringer's 1,000 mls @ 999 mls/hr 05/02/24 12:46 05/02/24 14:08 Lr IV 05/02/24 13:46 Infused .Q1H1M ONE Infusion Ondansetron HCl 4 mg 05/02/24 14:51 05/02/24 15:21 Ondansetron Hcl 4 Mg/2 Ml Vial IVPUSH 05/02/24 14:52 4 mg ONCE ONE Administration Medical Decision Making Medical Decision Making [facility] Narrative: This is a 38-year-old female, with a history of anxiety, who presents emergency department with concerns for weakness, body aches, decreased appetite since yesterday. Patient also reports some urinary symptoms. She reports some generalized abdominal cramping however physical exam revealing soft abdomen, no rebound or guarding. Patient also reports episode of feeling as though her heart was racing, and felt as though she was having a panic attack this morning with to see an chest tightness. She was on Zepbound for weight loss, last dose was Friday. Differential diagnoses including electrolyte derangement, dehydration, viral illness, URI, ACS-unlikely. Plan: Labs, EKG, chest x-ray, IV fluids Differential Diagnosis Differential Diagnoses: The differential diagnosis associated with the presentation includes See above Admission/Observation Consideration of admission/observation: Escalation of care including admission/observation considered Lab Data [facility] Lab Attestation statement: I reviewed the patient's lab results. 05/02/24 10:53 05/02/24 10:53 Labs: Lab Results 05/02/24 05/02/24 Range/Units 10:53 13:13 WBC 7.5 (4.8-10.8) X10*3/uL RBC 4.63 (4.20-5.50) X10*6/uL Hgb 13.4 (12.0-16.0) g/dl Hct 38.9 (37.0-47.0) % MCV 84.0 (80.0-98.0) fL MCH 28.9 (27.0-33.0) pg MCHC 34.4 (31.0-35.0) g/dl RDW 11.6 (11.0-16.0) % Plt Count 354 (160-400) X10*3/uL MPV 9.4 (9.4-12.3) fL Immature Gran % (Auto) 0.4 (0.0-0.4) % Neut % (Auto) 79.4 H (45-73) % Lymph % (Auto) 14.2 L (20-40) % [place] % (Auto) 5.9 (2-11) % Eos % (Auto) 0.1 (0-4) % Baso % (Auto) 0.0 (0-2) % Lymph # (Auto) 1.1 L (1.2-4.9) X10*3/uL [place] # (Auto) 0.4 (0.1-1.2) X10*3/uL Eos # (Auto) 0.0 (0.0-0.4) X10*3/uL Baso # (Auto) 0.0 (0.0-0.2) X10*3/uL Abs Immat Gran (auto) 0.03 (0.00-0.03) X10*3/uL Absolute Neuts (auto) 5.9 (2.0-8.3) x10*3/uL Absolute Nucleated RBC 0.000 (0.0-0.012) X10*3/uL Nucleated RBC % (auto) 0.0 (0.0-0.2) /100WBC Sodium 142 (135-145) mmol/L Potassium 5.1 D (3.3-5.1) mmol/L Chloride 109 H (96-108) mmol/L Carbon Dioxide 26 (22-29) mmol/L Anion Gap 12 (12-20) BUN 13 (9-16) mg/dL Creatinine 0.73 (0.5-1.4) mg/dL Estim Creat Clear Calc 107.6 Estimated GFR > 60 Random Glucose 99 (60-115) mg/dL Calcium 9.5 (8.4-10.2) mg/dL Magnesium 1.9 (1.6-2.6) mg/dL Total Bilirubin 0.5 (0.0-1.0) mg/dL Direct Bilirubin 0.2 (0.0-0.5) mg/dL AST 18 (5-31) U/L ALT 13 (0-31) U/L Alkaline Phosphatase 56 (39-117) U/L Total Creatine Kinase 51 (26-140) U/L Troponin I High Sens < 2.7 < 2.7 (<3.5-17.0) ng/L Total Protein 7.3 (6.5-8.0) g/dL Albumin 4.3 (3.5-5.0) g/dL Lipase 21 (8-78) U/L TSH 0.99 (0.32-4.0) uIU/mL Beta HCG, Quant < 2 mIU/mL Urine Color Yellow Urine Appearance Clear Urine pH 6.5 (5.0-9.0) Ur Specific [place] 1.020 (1.005-1.025) Urine Protein Negative (Neg-Trace) mg/dL Urine Glucose (UA) Negative (Negative) mg/dL Urine Ketones Trace (Negative) mg/dL Urine Blood Negative (Negative) Urine Nitrite Negative (Negative) Ur Leukocyte Esterase Small (1+) H (Negative) Urine RBC 0-2 (0-2) /HPF Urine WBC 0-5 (0-5) /HPF Ur Squamous Epith Cells 3-5 (0-2) /HPF Urine Bacteria Trace (None Seen) Hyaline Casts 0-2 (0-2) /LPF Influenza Type A (PCR) POSITIVE A (Negative) Influenza Type B (PCR) NEGATIVE (Negative) RSV RNA Qual (PCR) NEGATIVE (Negative) SARS-CoV-2 RNA (RT-PCR) NEGATIVE (Negative) Radiology Impression Discussion of test interpretation with radiology: I have reviewed the radiologist's reading. External Record Review External record reviewed: Inpatient record, Office record, Outpatient record, Prior outpatient labs, Prior outpatient radiology, Primary care record and Outside ED record Discharge Plan Discharge Clinical Impression: Influenza A, Viral illness Patient Disposition: Home, Self-Care Instructions: Influenza (ED), Viral Syndrome (ED) Additional Instructions: You were seen in the emergency department today. You tested positive for influenza A. Your blood work was reassuring. Your vital signs were within normal ranges. Your urine does not appear to be profoundly infected, we will call you if this changes. You likely have a virus, and given that you are not eating as much, this can be a source of your worsening symptoms. It is very important that you continue to stay well hydrated, eat small/bland meals. If any new or worsening symptoms occur including but not limited to severe chest pain, shortness of breath, please seek emergent care. Prescriptions: New ondansetron 4 mg tablet,disintegrating 4 mg PO Q6H PRN (Reason: nausea and vomiting) Qty: 12 0RF No Action meclizine 25 mg tablet 25 mg PO TID PRN (Reason: dizziness) Qty: 20 0RF ondansetron 4 mg tablet,disintegrating 4 mg PO Q8H 3 Days Qty: 9 0RF acetaminophen [Tylenol] 325 mg capsule 325 mg PO QID PRN (Reason: fever or pain) Qty: 30 0RF benzonatate 200 mg capsule 200 mg PO TID PRN (Reason: cough) Qty: 30 0RF prednisone 20 mg tablet 40 mg PO DAILY Qty: 10 0RF cefuroxime axetil 500 mg tablet 500 mg PO BID 7 Days Qty: 14 0RF Stand Alone Forms: Work/School Release Interventions: ED Discharge Assessment Last Done: 05/02/24 17:45 Discharge Date/Time: 05/02/24 17:45 Print Language: Yakut
[2024-05-02 10:19] VITALS: BP 136/77; BP 140/90; PULSE 88; PULSE 96; RESP 18; TEMP 37.3; O2SAT 98; BMI 28.5
--- NOTE | 2024-05-02 10:31 | ECG_ITS ---
Test Reason : CP Blood Pressure : */* mmHG Vent. Rate : 79 BPM Atrial Rate : 79 BPM P-R Int : 132 ms QRS Dur : 90 ms QT Int : 384 ms P-R-T Axes : 62 33 48 degrees QTcB Int : 440 ms Normal sinus rhythm Normal ECG When compared with ECG of 23-Sep-2023 15:15, No significant change was found Referred By: Smiley Tolentino Electronically Signed By: ALEXIS QUINN
[2024-05-02 11:12] LABS: MANUAL DIFF FLAG NO
[2024-05-02 11:13] LABS: Appearance Urine Clear; Color Urine Yellow; Eosinophils Percent Auto 0.1 % (0-4); Glucose Urine UA Negative (Negative); Hematocrit 38.9 % (37.0-47.0); Hemoglobin 13.4 g/dl (12.0-16.0); Imm Gran Abs Auto 0.03 X10*3/uL (0.00-0.03); Imm Gran Pct Auto 0.4 % (0.0-0.4); Leukocyte Esterase Urine Small (1+) (Negative); Lymphocytes Absolute Auto 1.1 X10*3/uL (1.2-4.9); Lymphocytes Percent Auto 14.2 % (20-40); Mean Corpuscular HGB Conc 34.4 g/dl (31.0-35.0); Mean Corpuscular Hemoglobin 28.9 pg (27.0-33.0); Mean Platelet Volume 9.4 fL (9.4-12.3); Monocytes Absolute Auto 0.4 X10*3/uL (0.1-1.2); Monocytes Percent Auto 5.9 % (2-11); Neutrophils Absolute Auto 5.9 x10*3/uL (2.0-8.3); Neutrophils Percent Auto 79.4 % (45-73); Nitrite Urine Negative (Negative); PH 6.5 (5.0-9.0); Platelet Count 354 X10*3/uL (160-400); Red Blood Count 4.63 X10*6/uL (4.20-5.50); Red Cell Distribution Width 11.6 % (11.0-16.0); UMIC TRIGGER UACC YES; Urine Blood Negative (Negative); Urine Ketones Trace mg/dL (Negative); Urine Protein Negative (Neg-Trace); White Blood Count 7.5 X10*3/uL (4.8-10.8)
[2024-05-02 11:22] LABS: Bacteria Urine Trace (None Seen); Hyaline Casts Urine 0-2 /LPF (0-2); RBC Urine 0-2 /HPF (0-2); UACC Culture Trigger YES; WBC Urine 0-5 /HPF (0-5)
[2024-05-02 11:31] LABS: Alanine Aminotransferase 13 U/L (0-31); Albumin Level 4.3 g/dL (3.5-5.0); Alkaline Phosphatase 56 U/L (39-117); Anion Gap 12 (12-20); Aspartate Amino Transferase 18 U/L (5-31); Bilirubin Direct 0.2 mg/dL (0.0-0.5); Bilirubin Total 0.5 mg/dL (0.0-1.0); Blood Urea Nitrogen 13 mg/dL (9-16); Calcium 9.5 mg/dL (8.4-10.2); Carbon Dioxide 26 mmol/L (22-29); Chloride 109 mmol/L (96-108); Creatinine Clr Calc Pharmacy 107.6; Estimated Glomerular Filt Rate > 60; Glucose Random 99 mg/dL (60-115); Lipase 21 U/L (8-78); Magnesium 1.9 mg/dL (1.6-2.6); Potassium 5.1 mmol/L (3.3-5.1); Sodium 142 mmol/L (135-145); Total Protein 7.3 g/dL (6.5-8.0)
[2024-05-02 11:33] LABS: Troponin-I High Sensitivity < 2.7 ng/L (<3.5-17.0)
[2024-05-02 12:00] LABS: HCG Quantitative < 2 mIU/mL; TSH reflex Free T4 0.99 uIU/mL (0.32-4.0)
--- NOTE | 2024-05-02 12:01 | PC.NURSE ---
Attempted to obtain IV access (2 attempts) without success. 1st attempt was 20g to Right AC, 2nd attempt was 22g to Left AC. Another RN is attempting to obtain IV access at this time. CACHORRO Castillo aware.
[2024-05-02 12:15] LABS: Influenza A PCR POSITIVE (Negative); Influenza B PCR NEGATIVE (Negative); Resp Syncy Virus RNA Qual PCR NEGATIVE (Negative); SARS COV2 PCR INHOUSE NEGATIVE (Negative)
[2024-05-02] MEDS: Acetaminophen 1,000 MG/100 ML PIGGYBACK 400 MG IV (13:06)
[2024-05-02] MEDS: Lactated Ringers 1,000 ML 999 ML IV (13:07)
[2024-05-02 13:41] LABS: Troponin-I High Sensitivity < 2.7 ng/L (<3.5-17.0)
[2024-05-02] MEDS: ondansetron HCL 4 MG/2 ML VIAL IVPUSH (15:21)
[2024-05-02 15:26] VITALS: TEMP 36.7
[2024-05-02 17:10] VITALS: BP 130/74; PULSE 82; RESP 18; TEMP 37.2; O2SAT 96
[2024-05-02 17:45] VITALS: BP 130/74; PULSE 82; RESP 18; TEMP 37.2; O2SAT 96
== END 2024-05-02 17:45 | disposition home or self-care (01) ==
PROVIDERS: Physician Assistant Medical; Emergency Provider Emergency Medicine; PCP Physician Assistant
DX: J10.1 Influenza due to other identified influenza virus with other respiratory manifestations (principal); B34.9 Viral infection, unspecified; R53.1 Weakness; M79.10 Myalgia, unspecified site; R11.0 Nausea; R07.89 Other chest pain; R10.2 Pelvic and perineal pain; Z03.818 Encounter for observation for suspected exposure to other biological agents ruled out; Z79.899 Other long term (current) drug therapy
CPT/HCPCS: 0241U; 36415; 71046; 80048; 80076; 81001; 82550; 83690; 83735; 84443; 84484; 84702; 85025; 87086; 93005; 96361; 96374; 96375; 99284; J0131; J2405; J7120

== ENCOUNTER → 2024-05-02 10:31 | Outpatient (BNV) | payer OTHER, SELFPAY | PROVIDERS: Emergency Provider Emergency Medicine; PCP Physician Assistant; Visit Provider Internal Medicine | DX: R07.9 Chest pain, unspecified (principal) | CPT/HCPCS: 93010 ==

== ENCOUNTER → 2024-05-02 10:31 | Outpatient (BNV) | payer OTHER, SELFPAY | PROVIDERS: Emergency Provider Emergency Medicine; PCP Physician Assistant; Visit Provider Radiology Vascular & Interventional Radiology | DX: R07.9 Chest pain, unspecified (principal) | CPT/HCPCS: 71046 ==